=== PATIENT | female | born 1990 | race Caucasian/White ===

== ENCOUNTER 2017-06-12 19:16 | Emergency (ER) | payer BC ==
--- NOTE | 2017-06-12 20:35 | EDM.PDOC ---
ED HPI GENERAL MEDICAL PROBLEM - General Chief Complaint: ENT Problem Stated Complaint: HIT IN NOSE WITH SOFTBALL Time Seen by Provider: 06/12/17 20:25 Source of Information: Reports: Patient History Limitations: Reports: No Limitations - History of Present Illness INITIAL COMMENTS - FREE TEXT/NARRATIVE: History of present illness: [26-year-old female was playing softball in the ball constant and hit her in the nose presents here wondering if she fractured her nose and with some bleeding. We visit time so a nasal clamp was placed on her and I was now before he could see her. Clamp was removed and there was no bleeding. No other injury.] Review of systems: As per history of present illness and below otherwise all systems reviewed and negative. Past medical history: As per history of present illness and as reviewed below otherwise noncontributory. Surgical history: As per history of present illness and as reviewed below otherwise noncontributory. Social history: No reported history of drug or alcohol abuse. Family history: As per history of present illness and as reviewed below otherwise noncontributory. Physical exam: HEENT: Examination of her nose reveals that there is no step-off or deformity or deviation. The annular on the right is swollen and painful to touch. Examination of the septum through the left naris reveals an intact septum that looks to be in place. She does have a little bruise developing across the bridge of her nose. Lungs: Clear to auscultation, Heart: S1S2, regular, Neuro: Awake, alert, oriented Exam nonfocal. Diagnostics: [] Therapeutics: [] Impression: [Nose contusion] Plan: [Clinically her nose does not appear to be fractured at this point. I gave her my usual discharge instructions if after 3 or 4 days and the pain is swelling go down if her nose looks to be straight and she can breathe out of both nostrils without any difficulty no further follow-up is needed. However if she is not happy with the cosmetic appearance of her nose reports a functioning right she will need to follow-up with her doctor and eventually ENT.] Definitive disposition and diagnosis as appropriate pending reevaluation and review of above. - Related Data Allergies Allergy/AdvReac Type Severity Reaction Status Date / Time Latex, Natural Rubber Allergy Hives Verified 06/12/17 20:14 Home Meds: Home Meds Albuterol [Proventil HFA] 1 inhalation INH Q4H 06/12/17 [History] Fluticasone/Salmeterol [Advair 250-50 Diskus] 1 each IH DAILY 06/12/17 [History] Past Medical History HEENT History: Reports: Sinusitis Respiratory History: Reports: Asthma Musculoskeletal History: Reports: Fracture Social & Family History - Tobacco Use Smoking Status *Q: Never Smoker - Caffeine Use Caffeine Use: Reports: Soda - Alcohol Use Days Per Week of Alcohol Use: 1 Number of Drinks Per Day: 3 Total Drinks Per Week: 3 - Recreational Drug Use Recreational Drug Use: No ED ROS ENT - Review of Systems Review Of Systems: ROS reveals no pertinent complaints other than HPI. ED EXAM, ENT - Physical Exam Exam: See Below Course - Vital Signs Last Recorded V/S: Last Vital Signs Temp 36.4 C 06/12/17 20:22 Pulse 103 H 06/12/17 20:22 Resp 14 06/12/17 20:22 BP 141/94 H 06/12/17 20:22 Pulse Ox 98 06/12/17 20:22 Departure - Departure Time of Disposition: 20:34 Disposition: Home, Self-Care 01 Condition: Good Clinical Impression: Contusion of nose, initial encounter Qualifiers: Encounter type: initial encounter Qualified Code(s): S00.33XA - Contusion of nose, initial encounter - Discharge Information Forms: ED Department Discharge Additional Instructions: As we discussed if after a few days when the swelling and pain subside your nose appears to be okay and you cosmetically are okay with this appearance and it is functioning and working okay them that further follow-up as needed. You can use Tylenol and Advil for pain and an ice pack to your nose would also be useful in controlling the swelling and pain
== END 2017-06-12 20:57 | disposition home or self-care (01) ==
LOC: JP.ED 19:16
DX: S00.33XA Contusion of nose, initial encounter (principal); J45.909 Unspecified asthma, uncomplicated; Z91.040 Latex allergy status; W21.07XA Struck by softball, initial encounter; Y93.64 Activity, baseball
CPT/HCPCS: 99283

== ENCOUNTER 2023-10-03 16:55 | Emergency (ER) | payer BC ==
[2023-10-03 17:44] LABS: APPEARANCE,URINE SLIGHTLY CLOUDY (CLEAR); BILIRUBIN,URINE NEGATIVE (NEGATIVE); COLOR,URINE YELLOW (YELLOW); GLUCOSE,URINE NEGATIVE (NEGATIVE); KETONES,URINE TRACE mg/dL (NEGATIVE); LEUKOCYTE ESTERASE,URINE SMALL (NEGATIVE); NITRITE,URINE NEGATIVE (NEGATIVE); OCCULT BLOOD,URINE LARGE (NEGATIVE); PROTEIN,URINE NEGATIVE (NEGATIVE); UROBILINOGEN,URINE 0.2 EU/dL (0.2-1.0)
[2023-10-03 17:52] LABS: BACTERIA,URINE MANY; EPITHELIAL CELLS,URINE MODERATE
[2023-10-03 17:53] LABS: AMORPHOUS SEDIMENT,URINE NOT SEEN; MUCUS,URINE NOT SEEN
[2023-10-03 17:59] LABS: BASOPHILS ABSOLUTE AUTO 0.03 K/uL (0.00-0.10); BASOPHILS PERCENT AUTO 0.3 % (0.1-1.3); EOSINOPHILS ABSOLUTE AUTO 0.44 K/uL (0.00-0.40); EOSINOPHILS PERCENT AUTO 4.3 % (0.0-5.4); HEMATOCRIT 35.2 % (34.3-46.0); HEMOGLOBIN 12.7 g/dL (11.2-15.5); IMMATURE GRAN ABSOLUTE AUTO 0.02 K/uL (0.00-0.23); IMMATURE GRAN PERCENT AUTO 0.2 % (0.0-0.7); LYMPHOCYTES ABSOLUTE AUTO 1.88 K/uL (0.8-3.3); LYMPHOCYTES PERCENT AUTO 18.3 % (11.4-47.7); MEAN CORPUSCULAR HEMOGLOBIN 30.2 pg (31.6-35.5); MEAN CORPUSCULAR HGB CONC 36.1 g/dL (31.6-35.5); MEAN CORPUSCULAR VOLUME 83.6 fL (81.4-99.0); MONOCYTES ABSOLUTE AUTO 1.04 K/uL (0.20-0.90); MONOCYTES PERCENT AUTO 10.1 % (3.3-12.6); NEUTROPHILS ABSOLUTE AUTO 6.85 K/uL (1.0-7.6); NEUTROPHILS PERCENT AUTO 66.8 % (40.0-78.1); PLATELET COUNT,PLT 275 K/uL (130-375); RED BLOOD CELL COUNT 4.21 M/uL (3.77-5.24); WHITE BLOOD CELL COUNT,WBC 10.3 K/uL (3.2-11.0)
== END 2023-10-03 21:12 | disposition home or self-care (01) ==
LOC: JP.ED 16:55
DX: O20.9 Hemorrhage in early pregnancy, unspecified (principal); I10 Essential (primary) hypertension; J45.909 Unspecified asthma, uncomplicated; Z79.899 Other long term (current) drug therapy; Z91.040 Latex allergy status; Z3A.13 13 weeks gestation of pregnancy
CPT/HCPCS: 36415; 76801; 81001; 84702; 85025; 87086; 99282; 99284